=== PATIENT | female | born 1955 | race Caucasian/White ===

== ENCOUNTER → 2017-06-21 | Outpatient (CLI) | payer OTHER | LOC: FIMAGING 16:12 | PROVIDERS: ATTEND Internal Medicine | DX: Z12.31 Encounter for screening mammogram for malignant neoplasm of breast (principal) | CPT/HCPCS: G0202 ==

== ENCOUNTER → 2018-06-23 | Outpatient (CLI) | payer OTHER | LOC: FIMAGING 16:08 | PROVIDERS: ATTEND Internal Medicine | DX: Z12.31 Encounter for screening mammogram for malignant neoplasm of breast (principal) ==

== ENCOUNTER → 2018-07-15 | Outpatient (CLI) | payer OTHER | LOC: FIMAGING 08:40 | PROVIDERS: ATTEND Internal Medicine | DX: R92.8 Other abnormal and inconclusive findings on diagnostic imaging of breast (principal) ==

== ENCOUNTER → 2018-08-04 | Day surgery (SDC) | payer OTHER ==
[~2018-08-04] MED LIST: BUPIVACAINE 0.5% 30 ML SDV ONE; LIDOCAINE 1% 300 MG/30 ML SDV ONE; THROMBIN (BOVINE) 5,000 UNIT VIAL TP ONE
== END | disposition home or self-care (01) ==
LOC: FIMAGING 07:16
PROVIDERS: ATTEND Radiology Diagnostic Radiology
DX: R92.8 Other abnormal and inconclusive findings on diagnostic imaging of breast (principal)

== ENCOUNTER → 2018-08-24 | Day surgery (SDC) | payer OTHER ==
[~2018-08-24] MED LIST changes: -BUPIVACAINE 0.5% 30 ML SDV ONE; -THROMBIN (BOVINE) 5,000 UNIT VIAL TP ONE
== END | disposition home or self-care (01) ==
LOC: FIMAGING 07:14
PROVIDERS: ATTEND Radiology Diagnostic Radiology
PROC: 3E0W3KZ Introduction of Other Diagnostic Substance into Lymphatics, Percutaneous Approach (ICD-10-PCS; principal; 2018-08-24)
PROC: BH01ZZZ Plain Radiography of Left Breast (ICD-10-PCS; principal; 2018-08-24)
DX: C50.912 Malignant neoplasm of unspecified site of left female breast (principal)
CPT/HCPCS: 19281; 76098; 78195; A9520

== ENCOUNTER 2018-09-09 06:51 | Day surgery (SDC) | payer OTHER ==
[2018-09-09] MEDS ORDERED: ceFAZolin 2 GM/DEXTROSE 100 ML IV ONE (07:01)
[2018-09-09] MEDS ORDERED: LR 1,000 ML IV ONE (07:02)
--- NOTE | 2018-09-09 07:04 | PDHPUP ---
History & Physical Update H&P update statement: This history and physical update is based on an assessment of the patient which was completed after admission or registration (within 24 hours), but prior to the surgery/procedure. H&P update: H&P reviewed & patient examined, no change in patient's condition since H&P completed
[2018-09-09] MEDS ORDERED: BUPIVACAINE 0.5% 30 ML SDV ONE (07:05)
[2018-09-09] MEDS ORDERED: MIDAZOLAM 2 MG/2 ML VIAL IVP ONE (07:54)
--- NOTE | 2018-09-09 07:54 | PDANEPAE ---
ANE History of Present Illness s/p left breast lumpectomy inadequate margins ANE Past Medical History - Cardiovascular History Hx Hypertension: No Hx Arrhythmias: No Hx Chest Pain: No Hx Coronary Artery / Peripheral Vascular Disease: No Hx CHF / Valvular Disease: No Hx Palpitations: No - Pulmonary History Hx COPD: No Hx Asthma/Reactive Airway Disease: No Hx Recent Upper Respiratory Infection: No Hx Oxygen in Use at Home: No Hx Sleep Apnea: Yes Sleep Apnea Screening Result - Last Documented: Positive Pulmonary History Comment: MILD SLEEP APNEA RECENTLY HAD SLEEP STUDY DONE AND JUST COMPLETED OXIMETRY TESTING OF. OXYGEN LEVELS RESULTS UNKNOWN - Neurologic History Hx Cerebrovascular Accident: No Hx Seizures: No Hx Dementia: No - Endocrine History Hx Diabetes: No Hypothyroid: Yes Hyperthyroid: No Obesity: mild Endocrine History Comment: HYPOTHYROID - Renal History Hx Renal Disorders: No - Liver History Hx Hepatic Disorders: No - Neurological & Psychiatric Hx Hx Neurological and Psychiatric Disorders: Yes Neurological / Psychiatric History Comment: MIGRAINES PREVENTED WITH RX. STILL INTERMITTENT AT TIMES. DEPRESSION - Cancer History Hx Cancer: Yes Cancer History Comment: NEW DX BREAST 08/2018 - Congenital Disorder History Hx Congenital Disorders: No - GI History GERD: no Hx Gastrointestinal Disorders: No - Other Health History Other Health History: DDD - Chronic Pain History Chronic Pain: No - Surgical History Prior Surgeries: LT BREAST LUMPECTOMY 08/24/18 AT [facility]. RACHID BUNION. REPLACED VALVE BETWEEN BLADDER AND KIDNEY 1979 ANE Review of Systems Review of systems is: negative Review of Systems: - Exercise capacity Exercise capacity: >=4 METS METS (RN): 4 METS ANE Patient History - Allergies Allergies/Adverse Reactions: ampicillin Allergy (Mild, Verified 05/08/15 12:40) Rash - Home Medications Home medications: home medication list seen and reviewed Home Medications: Herbals/Supplements -Info Only DAILY 09/08/18 [Last Taken 09/08/18] Prozac 20 MG (*) DAILY 09/08/18 [Last Taken 09/08/18] Synthroid DAILY 09/08/18 [Last Taken 09/09/18] Topamax DAILY 09/08/18 [Last Taken 09/08/18] - NPO status NPO Status: no food or drink >8 hours NPO Since - Liquids (Date): 09/09/18 NPO Since - Liquids (Time): 06:00 NPO Since - Solids (Date): 09/08/18 NPO Since - Solids (Time): 19:00 - Anes Hx Anes Hx: no prior problems - Smoking Hx Smoking Status: Former smoker - Family Anes Hx Family Anes Hx: none ANE Labs/Vital Signs - Vital Signs Vital Signs: reviewed preoperatively; see RN documention for details Blood Pressure: 106/75 Heart Rate: 77 Respiratory Rate: 16 O2 Sat (%): 93 Height: 162.56 cm Weight: 86.183 kg ANE Physical Exam - Airway Neck exam: FROM Mallampati Score: Class 2 Mouth exam: normal dental/mouth exam - Pulmonary Pulmonary: no respiratory distress - Cardiovascular Cardiovascular: regular rate and rhythym - ASA Status ASA Status: II ANE Anesthesia Plan Anesthesia Plan: GA with mask
[2018-09-09] MEDS ORDERED: PROPOFOL/EMULSION 500 MG/50 ML BOTTLE IV ONE (08:11)
[2018-09-09] MEDS ORDERED: LIDOCAINE 1% 300 MG/30 ML SDV ONE (08:11)
[2018-09-09] MEDS ORDERED: ONDANSETRON 4 MG/2 ML VIAL ONE (08:14)
[2018-09-09] MEDS ORDERED: DEXAMETHASONE 4 MG/ML VIAL ONE ×2 (08:14)
[2018-09-09] MEDS ORDERED: fentaNYL 100 MCG/2 ML INJ ONE (08:15)
[2018-09-09] MEDS ORDERED: HYDROmorphONE/DILAUDID 2 MG/ML INJ IVP PRN (08:17)
[2018-09-09] MEDS ORDERED: PROMETHAZINE HCL 25 MG/ML INJ IVP PRN (08:17)
[2018-09-09] MEDS ORDERED: fentaNYL 100 MCG/2 ML INJ IVP PRN (08:17)
[2018-09-09] MEDS ORDERED: oxyCODONE IR 5 MG TAB PO PRN (08:17)
[2018-09-09] MEDS ORDERED: ACETAMINOPHEN 500 MG TAB PO PRN (08:17)
[2018-09-09] MEDS ORDERED: MEPERIDINE 25 MG/0.5 ML AMP IVP PRN (08:17)
[2018-09-09] MEDS ORDERED: LABETALOL HCL 5 MG/ML 20 ML MDV IVP PRN (08:17)
[2018-09-09] MEDS ORDERED: NALOXONE HCL 0.4 MG/ML INJ IVP PRN (08:17)
[2018-09-09] MEDS ORDERED: METOCLOPRAMIDE 10 MG/2 ML VIAL IVP PRN (08:17)
[2018-09-09] MEDS ORDERED: ALBUTEROL 3 ML DEYVIAL IH PRN (08:17)
[2018-09-09] MEDS ORDERED: LR 500 ML IV PRN (08:17)
[2018-09-09] MEDS ORDERED: PHENYLEPHRINE HCL 100 MCG/ML SYR ONE (08:51)
--- NOTE | 2018-09-09 08:56 | POSTOPPROG ---
Post Op Note Date of Operation: 09/09/18 Surgeon: Angelina Abdalla Veneer Sander: gisela Anesthesiologist: lam Anesthesia: IV Sedation Pre-op Diagnosis: L breast cancer Post-op Diagnosis: same Indication: 63 yo with T1bN0 breast cancer DCIS lateral margin Procedure: Re-excise lateral margin Findings: no unusual Inf/Abcess present in the surg proc area at time of surgery?: No Depth: Superfical (Skin SQ) EBL: Minimal Specimen(s): lateral margin ink orange
--- NOTE | 2018-09-09 09:15 | GOP ---
DATE OF OPERATION: 09/09/2018 SURGEON: Angelina Abdalla MD UTILITY BAG ASSEMBLER: Ilana Munguia PA-C. ANESTHESIA: Monitored anesthesia care with IV sedation. ANESTHESIOLOGIST: Joey Swartz MD. PREOPERATIVE DIAGNOSIS: Left breast invasive ductal carcinoma. POSTOPERATIVE DIAGNOSIS: Left breast invasive ductal carcinoma. PROCEDURE PERFORMED: Re-excision left breast lateral margin. FINDINGS: No unusual. Ink parrish lateral. SPECIMENS: Lateral left breast tissue. INDICATIONS: The patient is a 63-year-old woman with a T1b N0 left breast cancer, who had a positive DCIS lateral margin. DESCRIPTION OF PROCEDURE: The patient was brought into the operating room, placed supine on the tabl e, and monitored anesthesia care with IV sedation was performed. Her left breast was prepped and paola ped in the usual sterile fashion. I infiltrated the area with 20 cc of 0.5% Marcaine mixed with 1% l idocaine and made an incision over a previous scar and evacuated a very small seroma. I dissected do wn to the base of the wound. I then grasped the lateral margin with an Allis clamp. I excised this and inked the new lateral margin orange. Hemostasis was achieved. Clips placed to jigna the new robert in. Deep layer closed with 3-0 Vicryl, skin closed with 3-0 Vicryl, followed by 4-0 Monocryl. [place] nix applied. She was awakened in the operating room, transferred to PACU in stable condition. /[id number]/MODL
[2018-09-09 09:50] VITALS: BP 93/64
--- NOTE | 2018-09-09 11:23 | POSTANESTH ---
Post Anesthetic Evaluation Cardiovascular Status: Normal, Stable Respiratory Status: Normal, Stable Level of Consciousness/Mental Status: Can Participate in Eval Pain Control: Adequate, Prn Tx Ordered Nausea/Vomiting Control: Adequate, Prn Tx Ordered Complications Possibly Related to Anesthesia: None Noted
== END 2018-09-09 10:45 | disposition home or self-care (01) ==
LOC: FSGY 06:51
PROVIDERS: ATTEND Surgery
PROC: 0HBU0ZZ Excision of Left Breast, Open Approach (ICD-10-PCS; principal; 2018-09-09 08:22)
DX: C50.412 Malignant neoplasm of upper-outer quadrant of left female breast (principal); Z17.0 Estrogen receptor positive status [ER+]; G47.33 Obstructive sleep apnea (adult) (pediatric); E03.9 Hypothyroidism, unspecified; G43.909 Migraine, unspecified, not intractable, without status migrainosus; F32.9 Major depressive disorder, single episode, unspecified
CPT/HCPCS: J0690; J1100; J2250; J2370; J2405; J2704; J3010

== ENCOUNTER → 2018-11-01 | Outpatient (CLI) | payer OTHER | LOC: FIMAGING 10:58 | PROVIDERS: ATTEND Internal Medicine Hematology & Oncology | DX: Z13.820 Encounter for screening for osteoporosis (principal); Z85.89 Personal history of malignant neoplasm of other organs and systems; Z79.899 Other long term (current) drug therapy ==